=== PATIENT | male | born 1995 | race Caucasian/White ===

== ENCOUNTER 2023-08-14 17:15 | Emergency (ER) | payer OTHER ==
[~2023-08-14] VITALS: Ht 185.4 cm; Wt 104.3 kg
[~2023-08-14 17:15] MED LIST: Prednisone10 MG PO; Triamcinolone A15 GM TOP
[2023-08-14 17:28] VITALS: BP 149/90
== END 2023-08-14 20:10 | disposition home or self-care (01) ==
LOC: ER 17:15
DX: S60.511A Abrasion of right hand, initial encounter (principal); S60.512A Abrasion of left hand, initial encounter; S60.311A Abrasion of right thumb, initial encounter; S60.312A Abrasion of left thumb, initial encounter; V86.56XA Driver of dirt bike or motor/cross bike injured in nontraffic accident, initial encounter; Z23 Encounter for immunization
CPT/HCPCS: 73120; 90471; 90715; 99283-25